=== PATIENT | female | born 1985 | race Caucasian/White ===

== ENCOUNTER 2021-10-30 17:54 | Inpatient (IN) | payer MEDICAID, SELFPAY ==
[~2021-10-30] VITALS: Ht 160 cm; Wt 106.1 kg
[2021-10-30 19:30] LABS: BASO % 0.4 % (0.0-1.0); EOS % 0.1 % (0.0-3.0); HEMATOCRIT 51.5 % (36.0-47.0); HEMOGLOBIN 18.1 g/dl (12.0-15.5); LYMPH # 0.5 10^3/uL (1.5-5.0); LYMPH % 4.9 % (24.0-44.0); MEAN CORPUSCULAR HEMOGLOBIN 34.2 pg (27.0-33.0); MEAN CORPUSCULAR HGB CONC 35.1 g/dl (32.0-36.5); MEAN CORPUSCULAR VOLUME 97.4 fl (80.0-96.0); MONO # 0.9 10^3/uL (0.0-0.8); MONO % 7.8 % (2.0-8.0); NEUTROPHILS # 9.5 10^3/uL (1.5-8.5); NEUTROPHILS % 86.5 % (36.0-66.0); PLATELET COUNT, AUTOMATED 310 10^3/uL (150-450); RED BLOOD COUNT 5.29 10^6/uL (4.00-5.40); WHITE BLOOD COUNT 10.9 10^3/uL (4.0-10.0)
[2021-10-30] MEDS ORDERED: KETOROLAC 30 MG/ML 1ML VIAL IV ONE (19:45)
[2021-10-30 20:03] LABS: RSV AMPLIFICATION NEGATIVE (NEGATIVE)
[2021-10-30 20:09] LABS: ALBUMIN 3.6 GM/DL (3.2-5.2); BILIRUBIN,DIRECT 0.3 MG/DL (0.0-0.2); BILIRUBIN,TOTAL 0.6 MG/DL (0.2-1.0); CHOLESTEROL RISK RATIO 2.641 (<5)
[2021-10-30] MEDS ORDERED: ONDANSETRON 4MG 2ML VIAL IV ONE (20:15)
[2021-10-30] MEDS ORDERED: MORPHINE 4 MG/ML 1ML VIAL/SYRINGE IV ONE (20:15)
[2021-10-30] MEDS ORDERED: NS 1,000 ML IV ONE ×2 (20:15→21:25)
[2021-10-30] MEDS ORDERED: HYDROMORPHONE HCL 0.5 MG/ 0.5 ML SYRINGE (J1170 PER 1) IV ONE (20:55)
[2021-10-30] MEDS ORDERED: ISOVUE-370 76% 100ML VIAL As Ordered ONE (20:59)
[2021-10-30] MEDS ORDERED: IBUP-1720 PO (21:02)
[2021-10-30] MEDS ORDERED: HOME MED LIST COMPLETE! XX SCH (21:05)
[2021-10-30 22:15] LABS: CK-MB VALUE MASS < 1.0 NG/ML (<3.6); CPK CREATINE PHOSPHOKINASE 460 U/L (26-192); MB/CK RELATIVE INDEX 0.22 (< OR =4)
[2021-10-30] MEDS ORDERED: HYDROMORPHONE HCL 0.5 MG/ 0.5 ML SYRINGE (J1170 PER 1) IV PRN (22:25)
[2021-10-30] MEDS ORDERED: PROMETHAZINE 25MG/ML 1ML VIAL IV PRN (22:35)
[2021-10-30] MEDS: LR 1,000 ML IV SCH (22:48)
[2021-10-30] MEDS: HYDROMORPHONE HCL 0.5 MG/ 0.5 ML SYRINGE (J1170 PER 1) IV PRN (22:49)
[2021-10-31] MEDS: HYDROMORPHONE HCL 0.5 MG/ 0.5 ML SYRINGE (J1170 PER 1) IV PRN ×2 (01:58→07:45)
[2021-10-31] MEDS ORDERED: hydrALAZINE 20MG/ML 1ML VIAL (J0360 PER 20MG) IV ONE (03:05)
[2021-10-31] MEDS: LR 1,000 ML IV SCH ×3 (04:00→18:25)
[2021-10-31 07:07] LABS: HEMOGLOBIN 17.4 g/dl (12.0-15.5); MEAN CORPUSCULAR HEMOGLOBIN 34.7 pg (27.0-33.0); MEAN CORPUSCULAR HGB CONC 35.5 g/dl (32.0-36.5); MEAN CORPUSCULAR VOLUME 97.6 fl (80.0-96.0); PLATELET COUNT, AUTOMATED 290 10^3/uL (150-450); RED BLOOD COUNT 5.02 10^6/uL (4.00-5.40); WHITE BLOOD COUNT 15.5 10^3/uL (4.0-10.0)
[2021-10-31 07:49] LABS: ALBUMIN 3.3 GM/DL (3.2-5.2); ALT/SGPT 403 U/L (12-78); BILIRUBIN,TOTAL 0.9 MG/DL (0.2-1.0); BLOOD UREA NITROGEN 10 MG/DL (7-18); CALCIUM LEVEL 8.3 MG/DL (8.5-10.1); CARBON DIOXIDE LEVEL 18 MEQ/L (21-32); CHLORIDE LEVEL 106 MEQ/L (98-107); CREATININE FOR GFR 0.85 MG/DL (0.55-1.30); GLOMERULAR FILTRATION RATE > 60.0 (>60); GLUCOSE, FASTING 175 MG/DL (70-100); MAGNESIUM LEVEL 1.3 MG/DL (1.8-2.4); SODIUM LEVEL 135 MEQ/L (136-145); TOTAL PROTEIN 7.3 GM/DL (6.4-8.2)
[2021-10-31] MEDS ORDERED: GLUCOSE 4GM CHEW TABLET PO PRN (08:05)
[2021-10-31] MEDS ORDERED: DEXTROSE 50% 50 ML SYRINGE IV PRN (08:05)
[2021-10-31] MEDS ORDERED: GLUCAGON INJ 1MG VIAL SC PRN (08:05)
[2021-10-31] MEDS ORDERED: MORPHINE 30 MG TAB **MSIR PO PRN ×2 (08:10→18:15)
[2021-10-31] MEDS ORDERED: PILL CUTTER 1 EACH XX PRN (08:25)
[2021-10-31] MEDS ORDERED: MORPHINE 15 MG SA TAB PO SCH (09:00)
[2021-10-31] MEDS ORDERED: LORazepam 2 MG TAB PO PRN (09:30)
[2021-10-31] MEDS: KETOROLAC 30 MG/ML 1ML VIAL IV SCH ×3 (09:44→22:19)
[2021-10-31] MEDS: MAG SULF 1GM/100ML (MAG RUN) 1 GM in IV 1 EA IV SCH ×2 (09:44→12:04)
[2021-10-31] MEDS: ENOXAPARIN 40MG/0.4ML SYRINGE (J1650 PER 10MG) SC SCH (09:46)
[2021-10-31] MEDS ORDERED: PROMETHAZINE 25MG/ML 1ML VIAL IV ONE (10:00)
[2021-10-31] MEDS ORDERED: OXAZEPAM 10MG CAP PO ONE (10:00)
[2021-10-31] MEDS ORDERED: MORPHINE 30 MG TAB **MSIR PO ONE ×2 (10:00→18:15)
[2021-10-31] MEDS ORDERED: MULTIVITAMIN -ADULT INJECTION 10 ML, THIAMINE INJection 100 MG, FOLIC ACID 1 MG in NS 1... IV ONE (12:00)
[2021-10-31 12:19] LABS: HEPATITIS B CORE ANTIBODY IGM NEGATIVE (NEGATIVE); HEPATITIS B SURFACE ANTIGEN NEGATIVE (NEGATIVE)
[2021-10-31 12:23] LABS: HEPATITIS C VIRUS ABY INDEX > 11.0 INDEX (<0.8)
[2021-10-31 12:42] LABS: BLOOD UREA NITROGEN 10 MG/DL (7-18); CARBON DIOXIDE LEVEL 20 MEQ/L (21-32); CHLORIDE LEVEL 104 MEQ/L (98-107); CREATININE FOR GFR 0.81 MG/DL (0.55-1.30); GLOMERULAR FILTRATION RATE > 60.0 (>60); GLUCOSE, FASTING 149 MG/DL (70-100); SODIUM LEVEL 131 MEQ/L (136-145)
[2021-10-31] MEDS: hydrALAZINE 20MG/ML 1ML VIAL (J0360 PER 20MG) IV SCH ×3 (12:49→22:18)
[2021-10-31 13:28] VITALS: BP 180/98
[2021-10-31] MEDS: NITROGLYCERIN 2% OINT 1 GM *U/D* PKT TOP SCH ×2 (14:13→20:12)
[2021-10-31 16:00] VITALS: BP 150/76
[2021-10-31] MEDS ORDERED: NALOXONE INJ 0.4MG/1ML VIAL (J2310 PER 1MG) IV PRN (18:15)
[2021-10-31] MEDS ORDERED: HYDROMORPHONE HCL 0.5 MG/ 0.5 ML SYRINGE (J1170 PER 1) IV ONE (18:15)
[2021-10-31 20:00] VITALS: BP 147/74
[2021-11-01] VITALS (7 sets, daily range): BP systolic 128–158; BP diastolic 63–77
[2021-11-01] MEDS: hydrALAZINE 20MG/ML 1ML VIAL (J0360 PER 20MG) IV SCH ×2 (01:00→05:05)
[2021-11-01] MEDS: LR 1,000 ML IV SCH (02:31)
[2021-11-01] MEDS: KETOROLAC 30 MG/ML 1ML VIAL IV SCH ×4 (02:34→21:23)
[2021-11-01 04:25] LABS: HEMOGLOBIN 14.7 g/dl (12.0-15.5); MEAN CORPUSCULAR HEMOGLOBIN 34.4 pg (27.0-33.0); MEAN CORPUSCULAR HGB CONC 34.2 g/dl (32.0-36.5); MEAN CORPUSCULAR VOLUME 100.7 fl (80.0-96.0); PLATELET COUNT, AUTOMATED 182 10^3/uL (150-450); RED BLOOD COUNT 4.27 10^6/uL (4.00-5.40); WHITE BLOOD COUNT 11.6 10^3/uL (4.0-10.0)
[2021-11-01 05:16] LABS: ALBUMIN 2.9 GM/DL (3.2-5.2); ALT/SGPT 280 U/L (12-78); BILIRUBIN,TOTAL 1.2 MG/DL (0.2-1.0); BLOOD UREA NITROGEN 10 MG/DL (7-18); CALCIUM LEVEL 6.9 MG/DL (8.5-10.1); CARBON DIOXIDE LEVEL 20 MEQ/L (21-32); CHLORIDE LEVEL 105 MEQ/L (98-107); CREATININE FOR GFR 0.65 MG/DL (0.55-1.30); GLOMERULAR FILTRATION RATE > 60.0 (>60); GLUCOSE, FASTING 103 MG/DL (70-100); LIPASE 5927 U/L (73-393); MAGNESIUM LEVEL 1.8 MG/DL (1.8-2.4); POTASSIUM SERUM 3.6 MEQ/L (3.5-5.1); SODIUM LEVEL 134 MEQ/L (136-145); TOTAL PROTEIN 6.3 GM/DL (6.4-8.2)
[2021-11-01] MEDS ORDERED: HYDROMORPHONE HCL 0.5 MG/ 0.5 ML SYRINGE (J1170 PER 1) IV ONE (07:30)
[2021-11-01] MEDS ORDERED: MORPHINE 30 MG TAB **MSIR PO ONE (07:30)
[2021-11-01] MEDS: ISOSORBIDE DIN. (ISORDIL) 20 MG TAB PO SCH ×3 (08:54→16:07)
[2021-11-01] MEDS: ENOXAPARIN 40MG/0.4ML SYRINGE (J1650 PER 10MG) SC SCH (08:55)
[2021-11-01 11:08] LABS: ANTINUCLEAR ANTIBODIES DIRECT Negative (Negative)
[2021-11-01] MEDS: **hydrALAZINE** 10 MG TAB PO SCH ×2 (16:00→21:17)
[2021-11-01] MEDS: KCL 10MEQ IN D5/0.45NS 1000ML 1,000 ML IV SCH (18:41)
[2021-11-01] MEDS ORDERED: MORPHINE 30 MG SA TAB PO ONE (19:50)
[2021-11-02] VITALS (8 sets, daily range): BP systolic 113–142; BP diastolic 64–85
[2021-11-02 01:10] LABS: ALBUMIN 2.5 GM/DL (3.2-5.2); ALT/SGPT 197 U/L (12-78); BILIRUBIN,TOTAL 1.1 MG/DL (0.2-1.0); BLOOD UREA NITROGEN 7 MG/DL (7-18); CALCIUM LEVEL 6.4 MG/DL (8.5-10.1); CARBON DIOXIDE LEVEL 23 MEQ/L (21-32); CHLORIDE LEVEL 106 MEQ/L (98-107); CREATININE FOR GFR 0.53 MG/DL (0.55-1.30); GLOMERULAR FILTRATION RATE > 60.0 (>60); GLUCOSE, FASTING 120 MG/DL (70-100); LIPASE 1935 U/L (73-393); POTASSIUM SERUM 3.3 MEQ/L (3.5-5.1); SODIUM LEVEL 137 MEQ/L (136-145); TOTAL PROTEIN 5.6 GM/DL (6.4-8.2)
[2021-11-02] MEDS: KCL 10MEQ IN D5/0.45NS 1000ML 1,000 ML IV SCH ×3 (04:00→17:14)
[2021-11-02] MEDS: KETOROLAC 30 MG/ML 1ML VIAL IV SCH ×4 (04:00→20:23)
[2021-11-02] MEDS: **hydrALAZINE** 10 MG TAB PO SCH ×4 (04:00→21:11)
[2021-11-02 05:35] LABS: HEMATOCRIT 36.4 % (36.0-47.0); MEAN CORPUSCULAR HEMOGLOBIN 34.5 pg (27.0-33.0); MEAN CORPUSCULAR HGB CONC 33.8 g/dl (32.0-36.5); PLATELET COUNT, AUTOMATED 146 10^3/uL (150-450); RED BLOOD COUNT 3.57 10^6/uL (4.00-5.40); WHITE BLOOD COUNT 8.9 10^3/uL (4.0-10.0)
[2021-11-02 05:38] LABS: HEMOGLOBIN 12.3 g/dl (12.0-15.5)
[2021-11-02 06:17] LABS: ALBUMIN 2.5 GM/DL (3.2-5.2); ALT/SGPT 179 U/L (12-78); BILIRUBIN,TOTAL 1.2 MG/DL (0.2-1.0); BLOOD UREA NITROGEN 6 MG/DL (7-18); CALCIUM LEVEL 6.5 MG/DL (8.5-10.1); CARBON DIOXIDE LEVEL 22 MEQ/L (21-32); CHLORIDE LEVEL 107 MEQ/L (98-107); CREATININE FOR GFR 0.46 MG/DL (0.55-1.30); GLOMERULAR FILTRATION RATE > 60.0 (>60); GLUCOSE, FASTING 123 MG/DL (70-100); LIPASE 1305 U/L (73-393); MAGNESIUM LEVEL 1.8 MG/DL (1.8-2.4); POTASSIUM SERUM 3.2 MEQ/L (3.5-5.1); SODIUM LEVEL 136 MEQ/L (136-145); TOTAL PROTEIN 5.7 GM/DL (6.4-8.2)
[2021-11-02] MEDS: ISOSORBIDE DIN. (ISORDIL) 20 MG TAB PO SCH ×3 (06:45→16:50)
[2021-11-02] MEDS ORDERED: POTASSIUM CHLORIDE 10MEQ SR TABLET PO ONE (07:45)
[2021-11-02] MEDS ORDERED: HYDROMORPHONE HCL 0.5 MG/ 0.5 ML SYRINGE (J1170 PER 1) IV ONE (07:45)
[2021-11-02] MEDS ORDERED: MORPHINE 30 MG TAB **MSIR PO PRN (08:00)
[2021-11-02] MEDS ORDERED: MORPHINE 30 MG SA TAB PO SCH (09:00)
[2021-11-02] MEDS: ENOXAPARIN 40MG/0.4ML SYRINGE (J1650 PER 10MG) SC SCH (09:17)
[2021-11-02] MEDS: MORPHINE 15 MG SA TAB PO SCH (20:22)
[2021-11-03] MEDS: KCL 10MEQ IN D5/0.45NS 1000ML 1,000 ML IV SCH ×2 (00:07→06:23)
[2021-11-03] MEDS: KETOROLAC 30 MG/ML 1ML VIAL IV SCH ×2 (02:00→08:20)
[2021-11-03] MEDS: **hydrALAZINE** 10 MG TAB PO SCH (04:25)
[2021-11-03 05:36] VITALS: BP 141/81
[2021-11-03] MEDS: ISOSORBIDE DIN. (ISORDIL) 20 MG TAB PO SCH (06:15)
[2021-11-03 06:18] LABS: HEMATOCRIT 35.5 % (36.0-47.0); HEMOGLOBIN 12.3 g/dl (12.0-15.5); MEAN CORPUSCULAR HEMOGLOBIN 34.5 pg (27.0-33.0); MEAN CORPUSCULAR HGB CONC 34.6 g/dl (32.0-36.5); MEAN CORPUSCULAR VOLUME 99.4 fl (80.0-96.0); PLATELET COUNT, AUTOMATED 156 10^3/uL (150-450); RED BLOOD COUNT 3.57 10^6/uL (4.00-5.40); WHITE BLOOD COUNT 9.4 10^3/uL (4.0-10.0)
[2021-11-03 07:06] LABS: ALBUMIN 2.4 GM/DL (3.2-5.2); ALT/SGPT 132 U/L (12-78); BILIRUBIN,TOTAL 1.5 MG/DL (0.2-1.0); BLOOD UREA NITROGEN 3 MG/DL (7-18); CALCIUM LEVEL 6.8 MG/DL (8.5-10.1); CARBON DIOXIDE LEVEL 21 MEQ/L (21-32); CHLORIDE LEVEL 111 MEQ/L (98-107); CREATININE FOR GFR 0.54 MG/DL (0.55-1.30); GLOMERULAR FILTRATION RATE > 60.0 (>60); GLUCOSE, FASTING 112 MG/DL (70-100); LIPASE 565 U/L (73-393); MAGNESIUM LEVEL 2.1 MG/DL (1.8-2.4); POTASSIUM SERUM 3.5 MEQ/L (3.5-5.1); SODIUM LEVEL 138 MEQ/L (136-145); TOTAL PROTEIN 6.3 GM/DL (6.4-8.2)
[2021-11-03] MEDS ORDERED: MORPHINE 30 MG TAB **MSIR PO ONE (08:30)
[2021-11-03] MEDS: ENOXAPARIN 40MG/0.4ML SYRINGE (J1650 PER 10MG) SC SCH (09:00)
[2021-11-03] MEDS: MORPHINE 15 MG SA TAB PO SCH (09:14)
[2021-11-03] MEDS ORDERED: MSIR30TA PO (10:25)
[2021-11-03] MEDS ORDERED: SELF1KIT MC (10:25)
[2021-11-03] MEDS ORDERED: atenoloL 25 MG TAB PO ONE (10:25)
[2021-11-03] MEDS ORDERED: MORP15TASA PO (10:25)
[2021-11-03] MEDS ORDERED: ATEN25TA PO (10:25)
[2021-11-03] MEDS ORDERED: PRIL20TA2 PO (10:27)
[2021-11-03] MEDS ORDERED: NORV5TAB PO (10:27)
[2021-11-03] MEDS ORDERED: amLODIPine 5 MG TAB PO PRN (10:30)
[2021-11-03 11:23] VITALS: BP 144/68
[2021-11-03] MEDS ORDERED: ELIQ5TAB PO (14:10)
[2021-11-04] MEDS ORDERED: atenoloL 25 MG TAB PO SCH (09:00)
== END 2021-11-03 14:28 | disposition home or self-care (01) | DRG 282 ==
LOC: M ED 17:54 → M PCU 22:22 → M ED INP 22:22 → ENRESERV 10-31 11:20 → M PCU 10-31 13:28 → M MSPAV 11-02 17:30
PROVIDERS: ADMIT Family Medicine; ATTEND General Practice
DX: K85.20 Alcohol induced acute pancreatitis without necrosis or infection (principal); E83.42 Hypomagnesemia; I10 Essential (primary) hypertension; F17.200 Nicotine dependence, unspecified, uncomplicated; Z20.822 Contact with and (suspected) exposure to COVID-19; E66.9 Obesity, unspecified; Z68.38 Body mass index [BMI] 38.0-38.9, adult; E87.1 Hypo-osmolality and hyponatremia; I16.0 Hypertensive urgency; E11.9 Type 2 diabetes mellitus without complications; R22.31 Localized swelling, mass and lump, right upper limb; R74.8 Abnormal levels of other serum enzymes; R74.01 Elevation of levels of liver transaminase levels